=== PATIENT | female | born 1950 ===

== ENCOUNTER → 2017-06-17 | Emergency (ER) | payer OTHER ==
[~2017-06-17] VITALS: Ht 157.5 cm; Wt 52.2 kg
[~2017-06-17] MED LIST: PROBIOTIC1 EAC3; VITAMIN B-1250 MCG; VITAMIN C100 MG; VITAMIN D400 UNI2
== END | disposition left against medical advice (07) ==
LOC: ER 20:10
DX: Z53.20 Procedure and treatment not carried out because of patient's decision for unspecified reasons (principal)

== ENCOUNTER 2017-07-22 09:45 | Outpatient (CLI) | payer OTHER | END 2017-07-22 09:57 | disposition home or self-care (01) | LOC: MAMO-SONO 09:45 | DX: Z12.31 Encounter for screening mammogram for malignant neoplasm of breast (principal); Z87.898 Personal history of other specified conditions; N61.1 Abscess of the breast and nipple ==

== ENCOUNTER 2017-11-26 13:32 | Outpatient (CLI) | payer OTHER | END 2017-11-26 14:00 | disposition home or self-care (01) | LOC: NUCLEAR 13:32 | DX: M81.0 Age-related osteoporosis without current pathological fracture (principal); Z13.820 Encounter for screening for osteoporosis; E56.8 Deficiency of other vitamins; E55.9 Vitamin D deficiency, unspecified; E21.1 Secondary hyperparathyroidism, not elsewhere classified ==

== ENCOUNTER 2018-08-29 13:48 | Emergency (ER) | payer OTHER ==
[~2018-08-29] VITALS: Ht 157.5 cm; Wt 50.8 kg
== END 2018-08-29 15:32 | disposition home or self-care (01) ==
LOC: ER 13:48
DX: T60 Toxic effect of pesticides (principal); R06.02 Shortness of breath; F41.1 Generalized anxiety disorder; T78.49XA Other allergy, initial encounter; Y92.098 Other place in other non-institutional residence as the place of occurrence of the external cause